=== PATIENT | male | born 2000 | race African-American/Black ===

== ENCOUNTER 2020-12-22 18:52 | Emergency (ER) | payer OTHER ==
[2020-12-22 19:01] VITALS: BP 137/78; PULSE 61; RESP 16; TEMP 97.6
[2020-12-22] MEDS ORDERED: PROPARACAINE 0.5% OPHTH DROPS 15 ML BTL RIGHT EYE STA (19:20)
[2020-12-22] MEDS ORDERED: SODIUM CHLORIDE 0.9% 1,000 ML IRRIGATION ONE (19:23)
[2020-12-22] MEDS ORDERED: FLUORESCEIN STRIPS 1 MG STRIP RIGHT EYE ONE (19:24)
--- NOTE | 2020-12-22 19:55 | ED ---
General Adult HPI - General Chief complaint: Eye Problems Stated complaint: [facility]-bleach in eye Time Seen by Provider: 12/22/20 19:01 Source: patient Mode of arrival: ambulatory Limitations: no limitations - History of Present Illness Initial comments: 20 year-old male patient presents to the emergency department for evaluation of right eye pain and discomfort. 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 Patient states he flushed with the eyewash station for about 5 minutes and then came here. He is reporting difficulty opening the right eye. Unable to determine if there is blurred vision because he cannot open. He denies any pain or injury to the left eye. Denies any other injuries or concerns. - Related Data Allergies Allergy/AdvReac Type Severity Reaction Status Date / Time No Known Allergies Allergy Verified 12/22/20 19:00 Review of Systems ROS Statement: Those systems with pertinent positive or pertinent negative responses have been documented in the HPI. ROS Other: All systems not noted in ROS Statement are negative. Past Medical History Past Medical History: No Reported History Past Surgical History: No Surgical Hx Reported Past Psychological History: No Psychological Hx Reported Smoking Status: Never smoker Past Alcohol Use History: None Reported Past Drug Use History: Marijuana General Exam Limitations: no limitations General appearance: alert, in no apparent distress, other (Physical well- developed, well-nourished adult male patient in no acute distress. Vital signs upon presentation are temperature 97.6F, pulse 61, respirations 16, blood pressure 137/78, pulse ox 97% on room air.) Eye exam: Present: normal appearance, PERRL, EOMI, conjunctival injection (Right), other (Clear tearing from the right eye. Cortes lamp examination with fluorescein stain revealed no evidence for injury to the right cornea.). Absent: scleral icterus, periorbital swelling Expanded Eyelids: Normal Inspection: Left, Swelling: Right Sclera/Conjunctival: Normal Inspection: Left, Injection: Right Visual acuity (R) = 20/: 20 Visual acuity (L) = 20/: 20 ENT exam: Present: normal exam, normal oropharynx, mucous membranes moist Respiratory exam: Present: normal lung sounds bilaterally. Absent: respiratory distress, wheezes, rales, rhonchi, stridor Cardiovascular Exam: Present: regular rate, normal rhythm, normal heart sounds. Absent: systolic murmur, diastolic murmur, rubs, gallop, clicks Neurological exam: Present: alert, oriented X3, CN II-XII intact Psychiatric exam: Present: normal affect, normal mood Skin exam: Present: warm, dry, intact, normal color. Absent: rash Course Vital Signs 12/22/20 18:57 Temperature 97.6 F Pulse Rate 61 Respiratory 16 Rate Blood Pressure 137/78 O2 Sat by Pulse 97 Oximetry Medical Decision Making - Medical Decision Making 20-year-old male patient presented to the emergency department for evaluation after getting bleach in his right eye at work. Physical examination did reveal some injection to the right sclera. Mild swelling to the right upper eyelid. Did contact poison control who recommended flushing for at least 15 minutes. We inserted a Tito lens and instilled normal saline for approximately 15 minutes. Afterwards patient did have improvement of symptoms. PH at that time was 7. Cortes lamp examination with fluorescein stain was obtained and showed no evidence for corneal injury. Visual acuity is 20/20 bilateral. Patient be discharged to follow-up with employee health services and ophthalmology specialist if his symptoms aren't improved. Return parameters were discussed in detail. He verbalizes understanding and agrees with this plan. Disposition Clinical Impression: Chemical insult, eye, Pain, eye, right Disposition: HOME SELF-CARE Condition: Good Instructions (If sedation given, give patient instructions): Chemical Eye Benjamin (ED) Additional Instructions: Follow up with laundry press operator if you're symptoms do not improve over the next 24 hours. Return to the emergency department if you're vision suddenly worsens or he have a new or worsening pain. Return for any other new, worsening, or concerning symptoms. Is patient prescribed a controlled substance at d/c from ED?: No Referrals: None,Stated [Primary Care Provider] - 1-2 days Time of Disposition: 20:39
== END 2020-12-22 20:49 | disposition home or self-care (01) ==
LOC: EC 18:52
DX: T26.91XA Corrosion of right eye and adnexa, part unspecified, initial encounter (principal); H57.11 Ocular pain, right eye; Y92.69 Other specified industrial and construction area as the place of occurrence of the external cause; Y99.0 Civilian activity done for income or pay
CPT/HCPCS: 96360; 99283

== ENCOUNTER 2020-12-31 14:23 | Emergency (ER) | payer OTHER ==
[2020-12-31 14:26] VITALS: BP 125/81; PULSE 70; RESP 18; TEMP 98.6
--- NOTE | 2020-12-31 15:30 | ED ---
Animal Bite HPI - General Chief Complaint: Animal Bite Stated Complaint: Dog bite Time Seen by Provider: 12/31/20 15:05 Source: patient Mode of arrival: ambulatory Limitations: no limitations - History of Present Illness Initial Comments: Patient is a 20-year-old male presenting to emergency Department with complaints of a dog bite to his right hand. Patient states he was getting ready to leave for work when his girlfriend's dog bit him on the right hand. Patient has a few very superficial powell on his right hand and right index finger. There is no active bleeding. He states the dog is up-to-date with his vaccines including tetanus. Patient is also up-to-date with his vaccines. Patient has only very minimal pain. He states he did wash his hands just after the bite. He has no further complaints at this time. - Related Data Previous Rx's Medication Instructions Recorded Amoxicillin/Potassium Clav 1 tab PO BID 3 Days #6 tab 12/31/20 [Augmentin 875-125 Tablet] Allergies Allergy/AdvReac Type Severity Reaction Status Date / Time No Known Allergies Allergy Verified 12/31/20 14:25 Review of Systems ROS Statement: Those systems with pertinent positive or pertinent negative responses have been documented in the HPI. ROS Other: All systems not noted in ROS Statement are negative. Past Medical History Past Medical History: No Reported History Past Surgical History: No Surgical Hx Reported Past Psychological History: No Psychological Hx Reported Smoking Status: Never smoker Past Alcohol Use History: None Reported Past Drug Use History: Marijuana General Exam - General Exam Comments Initial Comments: GENERAL: Patient is well-developed and well-nourished. Patient is nontoxic and in no acute distress. HEAD: Atraumatic, normocephalic. EYES: Pupils equal round and reactive to light, extraocular movements intact, sclera anicteric, conjunctiva are normal. Eyelids were unremarkable. ENT: Nares patent, oropharynx clear without exudates. Moist mucous membranes. NECK: Normal range of motion, supple without lymphadenopathy or JVD. LUNGS: Unlabored respirations. Breath sounds clear to auscultation bilaterally and e qual. No wheezes rales or rhonchi. HEART: Regular rate and rhythm without murmurs, rubs or gallops. ABDOMEN: Soft, nontender, normoactive bowel sounds. No guarding, no rebound. No masses appreciated. : Deferred MUSCULOSKELETAL: Patient has full range of motion of the right hand and fingers, no pain with palpation. Very mild swelling noted over the second MTP joint. No clubbing or cyanosis. NEUROLOGICAL: Patient is alert and oriented x 3. Motor and sensory are also intact. Normal speech, normal gait. PSYCH: Normal mood, normal affect. SKIN: Warm, Dry, normal turgor, no rashes. She has a few very superficial abrasions, bites noted to the right hand dorsal aspect, right index finger. There is no active bleeding, no gaping of the wounds. No erythema or significant swelling. Limitations: no limitations Course Vital Signs 12/31/20 14:24 Temperature 98.6 F Pulse Rate 70 Respiratory 18 Rate Blood Pressure 125/81 O2 Sat by Pulse 99 Oximetry Medical Decision Making - Medical Decision Making Patient is a 20-year-old male here for a dog bite to his right hand that happened just prior to arrival. He has a few superficial powell on his right hand, right index finger. No active bleeding. These wounds are very small in nature. Patient's wounds were cleaned. The dog is fully vaccinated, the patient also is up-to-date with his vaccines. I recommended antibiotic for 3 days. He is stable for discharge. He is requesting a work note. Return parameters were discussed with the patient he verbalizes understanding. Case discussed with Dr. Soto. Disposition Clinical Impression: Dog bite of right hand Disposition: HOME SELF-CARE Condition: Stable Instructions (If sedation given, give patient instructions): Animal Bite (ED) Additional Instructions: Please return to the Emergency Department if symptoms worsen or any other concerns. Take antibiotic as prescribed. May use ice for any swelling. Prescriptions: Amoxicillin/Potassium Clav [Augmentin 875-125 Tablet] 1 tab PO BID 3 Days #6 tab Is patient prescribed a controlled substance at d/c from ED?: No Referrals: None,Stated [Primary Care Provider] - 1-2 days
== END 2020-12-31 15:46 | disposition home or self-care (01) ==
LOC: EC 14:23
DX: S61.451A Open bite of right hand, initial encounter (principal); F12.90 Cannabis use, unspecified, uncomplicated; W54.0XXA Bitten by dog, initial encounter
CPT/HCPCS: 99283